=== PATIENT | female | born 2005 | race Caucasian/White ===

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

== ENCOUNTER → 2023-12-21 | Outpatient (CLI) | payer BC ==
[2023-12-21 17:13] LABS: HEMATOCRIT 38.3 % (36.0-47.0); HEMOGLOBIN 12.7 g/dl (12.0-15.5); MEAN CORPUSCULAR HGB CONC 33.2 g/dl (32.0-36.5); MEAN CORPUSCULAR VOLUME 93.4 fl (80.0-96.0); PLATELET COUNT, AUTOMATED 347 10^3/uL (150-450)
[2023-12-21 17:16] LABS: LIPASE 32 U/L (12-53)
[2023-12-21 17:17] LABS: AMYLASE 51 U/L (30-118)
[2023-12-21 17:18] LABS: ALBUMIN 4.3 G/DL (3.2-5.2); ALKALINE PHOSPHATASE 57 U/L (46-116); ALT/SGPT 10 U/L (7.0-40); AST/SGOT 9 U/L (<34); BILIRUBIN,TOTAL 0.5 MG/DL (0.3-1.2); BLOOD UREA NITROGEN 9 MG/DL (9-23); CALCIUM LEVEL 9.3 MG/DL (8.5-10.1); CARBON DIOXIDE LEVEL 28 MMOL/L (20-31); CHLORIDE LEVEL 107 MMOL/L (98-107); GLUCOSE, FASTING 90 MG/DL (60-100); POTASSIUM SERUM 4.1 MMOL/L (3.5-5.1); SODIUM LEVEL 142 MMOL/L (136-145); TOTAL PROTEIN 7.1 G/DL (5.7-8.2)
[2023-12-21 17:20] LABS: THYROID STIMULATING HORMONE 1.064 uIU/ML (0.48-4.17)
[2023-12-22 08:40] LABS: WHITE BLOOD COUNT 7.7 10^3/uL (4.0-10.0)
== END ==
LOC: M WUC 13:31
PROVIDERS: ATTEND Physician Assistant
DX: R53.83 Other fatigue (principal); R10.9 Unspecified abdominal pain

== ENCOUNTER → 2023-12-31 | Outpatient (REF) | payer BC | LOC: M LABWUC 16:41 | PROVIDERS: ATTEND Physician Assistant | DX: R10.9 Unspecified abdominal pain (principal); R19.7 Diarrhea, unspecified; K59.00 Constipation, unspecified ==

== ENCOUNTER → 2024-08-16 | Outpatient (CLI) | payer BC ==
[2024-08-16 19:11] LABS: BASO % 0.4 % (0.0-1.0); EOS # 0.1 10^3/uL (0.0-0.5); EOS % 1.4 % (0.0-3.0); HEMATOCRIT 40.5 % (36.0-47.0); HEMOGLOBIN 13.3 g/dl (12.0-15.5); LYMPH # 2.4 10^3/uL (1.5-5.0); MEAN CORPUSCULAR HEMOGLOBIN 30.9 pg (27.0-33.0); MEAN CORPUSCULAR HGB CONC 32.8 g/dl (32.0-36.5); MEAN CORPUSCULAR VOLUME 94.2 fl (80.0-96.0); MONO # 0.8 10^3/uL (0.0-0.8); MONO % 8.2 % (2.0-8.0); NEUTROPHILS # 5.9 10^3/uL (1.5-8.5); NEUTROPHILS % 63.8 % (36.0-66.0); PLATELET COUNT, AUTOMATED 369 10^3/uL (150-450); WHITE BLOOD COUNT 9.2 10^3/uL (4.0-10.0)
[2024-08-16 19:38] LABS: ALKALINE PHOSPHATASE 75 U/L (35-104); ALT/SGPT 17 U/L (7.0-40); AST/SGOT 13 U/L (<34); BILIRUBIN,TOTAL 0.3 MG/DL (0.3-1.2); BLOOD UREA NITROGEN 10 MG/DL (9-23); CALCIUM LEVEL 9.4 MG/DL (8.5-10.1); CARBON DIOXIDE LEVEL 31 MMOL/L (20-31); CHLORIDE LEVEL 105 MMOL/L (98-107); CREATININE FOR GFR 0.54 MG/DL (0.55-1.30); GLOMERULAR FILTRATION RATE > 60.0 (>60); GLUCOSE, FASTING 94 MG/DL (60-100); POTASSIUM SERUM 4.4 MMOL/L (3.5-5.1); SODIUM LEVEL 143 MMOL/L (136-145); TOTAL PROTEIN 7.4 G/DL (5.7-8.2)
[2024-08-16 19:40] LABS: RHEUMATOID FACTOR QUANT < 3.5 IU/ML (<14)
[2024-08-16 19:41] LABS: FOLATE 20.82 NG/ML (>5.4); THYROID STIMULATING HORMONE 1.603 uIU/ML (0.55-4.78)
[2024-08-16 19:42] LABS: VITAMIN B12 LEVEL 290 PG/ML (211-911)
[2024-08-16 19:44] LABS: ERYTHROCYTE SEDIMENTATION RATE 30 mm/hr (0-20)
[2024-08-16 21:02] LABS: HEMOGLOBIN A1c 4.8 % (4.0-6.0)
[2024-08-18 11:27] LABS: T P ELECTROPHORESIS SO 7.5 g/dL (6.1-8.1)
[2024-08-19 09:53] LABS: ANA SCREEN, IFA NEGATIVE (NEGATIVE)
[2024-08-21 06:03] LABS: VITAMIN E(ALPHA TOCOPHEROL) 10.8 mg/L (5.7-19.9); VITAMIN E(GAMMA TOCOPHEROL) 1.3 mg/L (<=4.3)
[2024-08-22 10:18] LABS: ALBUMIN SPEP 4.7 g/dL (3.8-4.8); ALPHA-1-GLOBULINS SO 0.3 g/dL (0.2-0.3); ALPHA-2-GLOBULINS SO 0.9 g/dL (0.5-0.9); BETA 2 GLOBULIN 0.4 g/dL (0.2-0.5); BETA-GLOBULIN SO 0.4 g/dL (0.4-0.6); GAMMA GLOBULINS SO 0.9 g/dL (0.8-1.7)
[2024-08-22 18:16] LABS: VITAMIN B6,PYRIDOXAL PHOSPHATE 10.4 ng/mL (2.1-21.7)
== END ==
LOC: M WUC 14:00
PROVIDERS: ATTEND Psychiatry & Neurology Neurology
DX: G62.9 Polyneuropathy, unspecified (principal)

== ENCOUNTER 2025-04-11 10:08 | Day surgery (SDC) | payer BC ==
[~2025-04-11] VITALS: Ht 165.1 cm; Wt 70.0 kg
[~2025-04-11 10:08] MED LIST: ROCURONIUM BROMIDE 50MG/5ML VIAL As Ordered ONE
[2025-04-11] MEDS: LR 1,000 ML IV SCH (10:45)
[2025-04-11] MEDS ORDERED: dexAMETHasone 4 MG/ML 1 ML VIAL As Ordered ONE (10:45)
[2025-04-11] MEDS ORDERED: LIDOCAINE 2% 100 MG/5 ML SDV (FOR ANES.) As Ordered ONE (10:45)
[2025-04-11] MEDS ORDERED: dexmedeTOMIDine (4 MCG/ML) 200 MCG/50 ML BTL As Ordered ONE (10:45)
[2025-04-11] MEDS ORDERED: ONDANSETRON 4MG/2ML VIAL As Ordered ONE (10:45)
[2025-04-11] MEDS ORDERED: SUGAMMADEX SODIUM 500 MG/5 ML VIAL As Ordered ONE (10:45)
[2025-04-11] MEDS ORDERED: MIDAZOLAM INJ 2 MG/2 ML VIAL As Ordered ONE (10:46)
[2025-04-11] MEDS ORDERED: ACETAMINOPHEN 1000MG/100ML IV BAG As Ordered ONE (11:12)
[2025-04-11] MEDS: LIDOCAINE W/EPINEPHrine 1% 20 ML VIAL As Ordered ONE (11:55)
[2025-04-11] MEDS: METHYLENE BLUE 0.5% (5 MG/ML) 10 ML AMP As Ordered ONE (11:57)
[2025-04-11] MEDS: OXYMETAZOLINE 0.05% NASAL SPRAY As Ordered ONE (11:59)
[2025-04-11] MEDS ORDERED: LR 1,000 ML IV SCH (12:45)
[2025-04-11] MEDS: ONDANSETRON 4MG/2ML VIAL IV PRN (13:16)
[2025-04-11] MEDS: HYDROMORPHONE HCL 0.5 MG/0.5 ML SYRINGE IV PRN (13:16)
[2025-04-11 14:12] VITALS: BP 128/79; TEMP 97.4; O2SAT 99
== END 2025-04-11 14:25 | disposition home or self-care (01) ==
LOC: M SDC 10:08
PROVIDERS: ATTEND Otolaryngology
DX: J34.2 Deviated nasal septum (principal); J34.3 Hypertrophy of nasal turbinates; J34.89 Other specified disorders of nose and nasal sinuses
CPT/HCPCS: 30140; 30520; 81025; J0131; J1100; J1171; J2250; J2405; J2765; J3010; J3490